=== PATIENT | female | born 1955 | race Caucasian/White ===

== ENCOUNTER 2018-09-16 07:29 | Emergency (ER) | payer BC ==
--- OUTSIDE RECORDS SUMMARY | 2018-09-16 07:31 | XMS REPORT | Clinical Summary ---
:1955 Author Organization [facility] Address [address] [place] [address] Care Team Providers Name Role Phone Alpesh Das MD Primary Care Provider Allergies Active Allergy Reactions Severity Noted Date Comments Codeine Other (See Comments) 06/26/2018 Nausea Medications Medication Sig Dispensed Refills Start Date End Date Status levocetirizine (XYZAL) 5 Take 5 mg by 0 Active MG tablet mouth every evening. metoprolol tartrate Take 25 mg by 0 Active (LOPRESSOR) 25 mg tablet mouth daily. ubidecarenone (COENZYME Take by mouth. 0 Active Q10) 60 mg capsule calcium Take 1 tablet by 0 Active carbonate/vitamin D3 mouth daily. (CALCIUM 500 + D ORAL) Active Problems Problem Noted Date Cardiac risk counseling 06/27/2018 Essential hypertension 06/26/2018 Encounters Date Type Specialty Care Team Description 07/25/2018 Telephone Cardiology Corbin Mcconnell MA Results (ct calcium score) 07/13/2018 Hospital Encounter Procedural Danny Diamond Essential hypertension; Cardiology MD Jaycee Cardiac risk counseling 06/26/2018 Office Visit Cardiology Danny Diamond Essential hypertension ( Primary Dx); MD Jaycee Cardiac risk counseling 06/26/2018 Orders Only Cardiology Danny Diamond MD after 09/15/2017 Family History Medical History Relation Name Comments CABG/Stent Father CABG/Stent Maternal Grandfather CABG/Stent Maternal Grandmother Relation Name Status Comments Father Maternal Grandfather Maternal Grandmother Social History Tobacco Use Types Packs/Day Years Used Date Never Smoker Smokeless Tobacco: Never Used Alcohol Use Drinks/Week oz/Week Comments No Alcohol Habits Answer Date Recorded How often do you have a drink containing alcohol? Never 06/26/2018 How many drinks containing alcohol do you have on a typical Not asked day when you are drinking? How often do you have six or more drinks on one occasion? Not asked Sex Assigned at Date Recorded Not on file Job Start Date Occupation Industry Not on file Not on file Not on file Travel History Travel Start Travel End No recent travel history available. Last Filed Vital Signs Vital Sign Reading Time Taken Blood Pressure 144/78 06/26/2018 3:03 PM [employer]IAL PROJECT [employer]GER Pulse 68 06/26/2018 3:03 PM [employer]IAL PRO[employer]GER Temperature 37 C (98.6 F) 06/26/2018 3:03 PM [employer]IAL PROJECT MANAGER Respiratory Rate 18 06/26/2018 3:03 PM [employer]IAL PROJECT MANAGER Oxygen Saturation 96% 06/26/2018 3:03 PM [employer]IAL PROJECT MANAGER Inhaled Oxygen Concentration - - Weight 93 kg (205 lb) 06/26/2018 3:03 PM [employer]IAL PROJECT MANAGER Height 160 cm (5' 3") 06/26/2018 3:03 PM [employer]IAL PROJECT MANAGER Body Mass Index 36.31 06/26/2018 3:03 PM REMEDIAL PROJECT MANAGER Plan of Treatment Health Maintenance Due Date Last Done Comments CERVICAL CANCER SCREENING 1976 BREAST CANCER SCREENING 2005 COLON CANCER SCREENING 2005 SHINGLES VACCINES (#1) 2005 INFLUENZA VACCINE 02/08/2018 Procedures Procedure Name Priority Date/Time Associated Diagnosis Comments CT CARDIAC CALCIUM Routine 07/13/2018 11:16 AM Essential Results for this SCORE [employer]IAL PROJECT MANAGER hypertension procedure are in Cardiac risk the results counseling section. ECG 12-LEAD Routine 06/26/2018 3:15 PM Essential Results for this [employer]IAL PROJECT MANAGER hypertension procedure are in Cardiac risk the results counseling section. OBTAIN MEDICAL Routine 06/26/2018 RECORDS after 09/15/[address] cardiac calcium score (07/13/2018 11:16 AM REMEDIAL PROJECT MANAGER) Narrative Performed At [facility] Nuclear Cardiology and Cardiac CT [address] [place] [address] CT Calcium Scoring Report Pat.Name:CRISTIANE TYLER Pat.ID:[id number] St.Date: 07/13/2018Refer.MD:DANNY DIAMOND MD Exam Time: 10:54:00 AM Study Type:CT Calcium Scoring Height:63inWeight: 198lb BSA: 1.93 m2 DOBAge:[age]Y Sex: FEMALEHR: 67 bpm Nuclear Tech:RT Huma(R)(CT) Pat. Stat.:Outpatient CPT - 4: [employer] Event ID: [id number] Order ID:[id number] Procedures:CT Flash mode Race:C SUMMARY: Technique: Sequential 3mm CT cuts were obtained through the chest using the Siemens Somatom Force CT scanner with ECG gating.Interactive image viewing and volumetric display and analysis were also performed.The CAC score was quantified using the Agatston scoring method. Non-contrast cardiac CT results are as follows: The total Coronary Artery Calcium Score (CACS) is 0 (ZERO). The non-contrast CT shows a normal cardiac size, no pericardial abnormalities, a normal aortic root of 3.2cm, a normal ascending thoracic aorta of 3.4cm and anormal descending thoracic aorta of 2.7cm.The left main and right coronary arteries appear to originate normally from the left and right sinus of Valsalva.The right coronary artery is dominant. Non-Cardiac Findings: None. Conclusion: Normal non-contrast cardiac CT. The coronary artery calcium score indicates no significant coronary atherosclerosis and a <0.3% risk per year of a major cardiac event.A CACS of zero is observed in 57% of women at age 63years. Recommendations: (1) Continue primary preventative strategies. Signed 07/14/2018 03:36 PM Svetlana Tavera MD Procedure Note Interface, Radiology Results In - 07/14/2018 3:36 PM [facility] Nuclear Cardiology and Cardiac CT [address] [place] [address] CT Calcium Scoring Report Pat.Name: CRISTIANE TYLER Pat.ID: [id number] St.Date: 07/13/2018 Refer.MD: DANNY DIAMOND MD Exam Time: 10:54:00 AM Study Type:CT Calcium Scoring Height: 63in Weight: 198lb BSA: 1.93 m2 Age: 12 1955,63Y Sex: FEMALE HR: 67 bpm Nuclear Tech:RT Huma(R)(CT) Pat. Stat.:Outpatient CPT - 4: [employer] Event ID:[id number] Order ID: [id number] Procedures:CT Flash mode Race: C SUMMARY: Technique: Sequential 3mm CT cuts were obtained through the chest using the Siemens Somatom Force CT scanner with ECG gating. Interactive image viewing and volumetric display and analysis were also performed. The CAC score was quantified using the Agatston scoring method. Non-contrast cardiac CT results are as follows: The total Coronary Artery Calcium Score (CACS) is 0 (ZERO). The non-contrast CT shows a normal cardiac size, no pericardial abnormalities, a normal aortic root of 3.2cm, a normal ascending thoracic aorta of 3.4cm and a normal descending thoracic aorta of 2.7cm. The left main and right coronary arteries appear to originate normally from the left and right sinus of Valsalva. The right coronary artery is dominant. Non-Cardiac Findings: None. Conclusion: Normal non-contrast cardiac CT. The coronary artery calcium score indicates no significant coronary atherosclerosis and a <0.3% risk per year of a major cardiac event. A CACS of zero is observed in 57% of women at age 63years. Recommendations: (1) Continue primary preventative strategies. Signed 07/14/2018 03:36 PM Svetlana Tavera MD Performing Organization Address [facility] Phone Number [facility] [address] [place] [address] ECG 12 lead (06/26/2018 3:15 PM REMEDIAL PROJECT MANAGER) Ventricular rate 63 [facility] Atrial rate 63 [facility] AL interval 186 [facility] QRSD interval 80 [facility] QT interval 398 [facility] QTC interval 407 [facility] P axis 1 58 [facility] QRS axis 1 56 [facility] T wave axis 70 [facility] EKG impression Normal sinus rhythm-Normal ECG-No previous [facility] ECGs available- Narrative Performed At Performing Organization Address [facility]/Zipcode Phone Number [facility] [address] [place] [address] Obtain medical records (06/26/2018) Narrative Performed At after 09/15/2017 Advance Directives Patient has advance care planning documents on file. For more information, please contact:Darron Chowdary[address] [place] [address]
[2018-09-16] MEDS ORDERED: NA CHLORIDE 0.9% 1,000 ML ONE ×2 (07:55→08:53)
[2018-09-16] MEDS ORDERED: ONDANSETRON 4 MG/2 ML VIAL ONE (07:55)
[2018-09-16 08:05] LABS: Absolute Monocytes 0.9 K/uL (0.1-1.3); Absolute Neutrophil 4.2 K/uL (1.8-8.0); Basophils % 0.5 % (0-1.3); Eosinophils % 0.8 % (0-4.4); Hematocrit 49.4 % (36.0-45.0); Lymphocytes % 27.7 % (15.3-44.8); MPV 8.7 fL (7.6-11.3); Monocytes % 12.2 % (3.3-12.3); RBC Red Blood Cell Count 5.66 M/uL (3.86-4.86)
[2018-09-16 08:27] LABS: Albumin 4.4 g/dL (3.4-5.0); Bilirubin Direct 0.2 mg/dL (0-0.2); Bilirubin Total 0.5 mg/dL (0.2-1.0); Potassium 3.7 mmol/L (3.5-5.1); Protein, Total 9.2 g/dL (6.4-8.2)
--- NOTE | 2018-09-16 09:26 | ER ---
Nurse's Notes [facility] Name: Vandana Tyler Age: 63 yrs Sex: Female : 1955 Arrival Date: 09/16/2018 Time: 07:31 Bed 5 Private MD: Diagnosis: Volume depletion, unspecified;Diarrhea, unspecified;Vomiting, unspecified Presentation: 09/16 07:40 Presenting complaint: Patient states: Diarrhea x 3 days, N/V and R flank pain that ss began 2 days ago. Denies fever. Transition of care: patient was not received from another setting of care. Onset of symptoms was August 16, 2018. Risk Assessment: Do you want to hurt yourself or someone else? Patient reports no desire to harm self or others. Initial Sepsis Screen: Does the patient meet any 2 criteria? HR > 90 bpm. No. Patient's initial sepsis screen is negative. Does the patient have a suspected source of infection? No. Patient's initial sepsis screen is negative. Care prior to arrival: None. 07:40 Method Of Arrival: Ambulatory ss 07:40 Acuity: DENISSE 3 ss Historical: - Allergies: 07:48 Levaquin; ss - Home Meds: 07:48 metoprolol tartrate 25 mg Oral tab 1 tab once daily [Active]; Xyzal 5 mg oral tab 1 tab ss as needed [Active]; - PMHx: 07:48 prediabetic; Hypertension; ss - PSHx: 07:48 Cholecystectomy; Knee surgery; Foot; kidney stone removed; ss - Immunization history:: Adult Immunizations up to date. - Social history:: Smoking status: Patient/guardian denies using tobacco. - Ebola Screening: : Patient denies exposure to infectious person Patient denies travel to an Ebola-affected area in the 21 days before illness onset. Screenin:48 Abuse screen: Denies threats or abuse. Denies injuries from another. Tuberculosis ss screening: Never had TB. Fall Risk None identified. 07:58 Nutritional screening: No deficits noted. ch Assessment: 07:58 General: Appears in no apparent distress. comfortable, Behavior is calm, cooperative, ch appropriate for age. Pain: Complains of pain in posterior aspect of right lateral abdomen, anterior aspect of right lateral abdomen and right upper quadrant Pain currently is 6 out of 10 on a pain scale. Pain began suddenly. Neuro: No deficits noted. Cardiovascular: Denies chest pain. Respiratory: Airway is patent Respiratory effort is even, unlabored. GI: Abdomen is round non-distended, Bowel sounds present X 4 quads. Abd is soft and non tender X 4 quads. Reports cramping, diarrhea, nausea, vomiting. : No signs and/or symptoms were reported regarding the genitourinary system. EENT: No signs and/or symptoms were reported regarding the EENT system. Derm: Skin is pink, warm \T\ dry. Musculoskeletal: No signs and/or symptoms reported regarding the musculoskeletal system. 08:49 Reassessment: Patient appears in no apparent distress at this time. Patient and/or ch family updated on plan of care and expected duration. Pain level reassessed. Patient is alert, oriented x 3, equal unlabored respirations, skin warm/dry/pink. Patient states feeling better. 09:25 Reassessment: Patient appears in no apparent distress at this time. Patient and/or ch family updated on plan of care and expected duration. Pain level reassessed. Patient is alert, oriented x 3, equal unlabored respirations, skin warm/dry/pink. pt oob and urinated, c/o abdominal cramping. pt medicated per orders, verb understanding of plan to discharge. Patient states feeling better. Patient states symptoms have improved. Vital Signs: 07:48 BP 148 / 89; Pulse 115; Resp 19; Temp 97.6(O); Pulse Ox 98% on R/A; Weight 86.18 kg; ss Height 5 ft. 3 in. (160.02 cm); Pain 5/10; 08:49 BP 124 / 74; Pulse 85; Pulse Ox 98% on R/A; ch 09:25 BP 121 / 68; Pulse 87; Resp 16; Temp 97.9; Pulse Ox 99% on R/A; Pain 4/10; ch 07:48 Body Mass Index 33.66 (86.18 kg, 160.02 cm) ED Course: 07:31 Patient arrived in ED. tw3 07:34 Gardenia Brush FNP-C is PHCP. kb 07:34 Rehan Licona MD is Attending Physician. kb 07:46 Triage completed. ss 07:48 Arm band placed on right wrist. ss 07:48 Patient has correct armband on for positive identification. Placed in gown. Bed in low ss position. Call light in reach. Side rails up X 1. Pulse ox on. NIBP on. 07:48 Patient maintains SpO2 saturation greater than 95% on room air. 07:58 Della Garces, RN is Primary Nurse. 07:58 No apparent distress. ch 07:58 Warm blanket given. ch 07:58 No provider procedures requiring assistance completed. Initial lab(s) drawn, by al, ch sent to lab. Inserted saline lock: 18 gauge in right forearm, using aseptic technique. 09:25 IV discontinued, intact, bleeding controlled, No redness/swelling at site. Pressure ch dressing applied. Administered Medications: 08:03 Drug: Zofran 4 mg Route: IVP; Site: right forearm; ch 08:45 Follow up: Response: No adverse reaction; Marked relief of symptoms ch 08:03 Drug: NS 0.9% 1000 ml Route: IV; Rate: 1000 ml; Site: right forearm; ch 08:45 Follow up: IV Status: Completed infusion; IV Intake: 1000ml ch 08:44 Drug: NS 0.9% 1000 ml Route: IV; Rate: 1000 ml; Site: right forearm; ch 09:32 Follow up: IV Status: Completed infusion; IV Intake: 1000ml ch 09:32 Drug: Bentyl 20 mg Route: PO; ch 09:33 Follow up: Response: No adverse reaction ch Intake: 08:45 IV: 1000ml; Total: 1000ml. ch 09:32 IV: 1000ml; Total: 2000ml. Outcome: 09:25 Discharge ordered by . kiah 09:25 Discharged to home ambulatory, with family. 09:25 Condition: improved 09:25 Discharge instructions given to patient, family, Instructed on discharge instructions, follow up and referral plans. medication usage, Demonstrated understanding of instructions, follow-up care, medications, Prescriptions given X 2. 09:39 Patient left the ED. Signatures: Gardenia Brush, MARY SANDOVAL-Della Chappell, RN RN Eliz Nowak RN RN Luz Elena Bhagat tw3 Corrections: (The following items were deleted from the chart) 07:49 07:40 Initial Sepsis Screen: Does the patient meet any 2 criteria? No. Patient's ss initial sepsis screen is negative. Does the patient have a suspected source of infection? No. Patient's initial sepsis screen is negative. ss
--- NOTE | 2018-09-16 09:26 | EDPHYS ---
Physician Documentation [facility] Name: Vandana Tyler Age: 63 yrs Sex: Female : 1955 Arrival Date: 09/16/2018 Time: 07:31 Bed 5 Private MD: ED Physician Rehan Licona HPI: 09/16 07:45 This 63 yrs old Female presents to ER via Unassigned with complaints of kb Diarrhea. 07:45 The patient presents to the emergency department with nausea, vomiting, diarrhea, kb abdominal pain. Onset: The symptoms/episode began/occurred 5 day(s) ago. Possible causes: unknown. The symptoms are aggravated by nothing. The symptoms are alleviated by nothing. Associated signs and symptoms: Pertinent positives: abdominal pain, diarrhea, nausea, vomiting, Pertinent negatives: fever. Severity of symptoms: At their worst the symptoms were moderate in the emergency department the symptoms are unchanged. The patient has not experienced similar symptoms in the past. The patient has not recently seen a physician. Pt reports she started having diarrhea on Tuesday night, then vomited the past two days (once a day). c/o RUQ pain as well. Denies fever or sick contacts. Historical: - Allergies: 07:48 Levaquin; ss - Home Meds: 07:48 metoprolol tartrate 25 mg Oral tab 1 tab once daily [Active]; Xyzal 5 mg oral tab 1 tab ss as needed [Active]; - PMHx: 07:48 prediabetic; Hypertension; ss - PSHx: 07:48 Cholecystectomy; Knee surgery; Foot; kidney stone removed; ss - Immunization history:: Adult Immunizations up to date. - Social history:: Smoking status: Patient/guardian denies using tobacco. - Ebola Screening: : Patient denies exposure to infectious person Patient denies travel to an Ebola-affected area in the 21 days before illness onset. ROS: 07:46 Constitutional: Negative for fever, chills, and weight loss, ENT: Negative for injury, kb pain, and discharge, Neck: Negative for injury, pain, and swelling, Cardiovascular: Negative for chest pain, palpitations, and edema, Respiratory: Negative for shortness of breath, cough, wheezing, and pleuritic chest pain, Back: Negative for injury and pain, : Negative for injury, bleeding, discharge, and swelling, MS/Extremity: Negative for injury and deformity, Skin: Negative for injury, rash, and discoloration, Neuro: Negative for headache, weakness, numbness, tingling, and seizure. 07:46 Abdomen/GI: Positive for abdominal pain, nausea, vomiting, and diarrhea, Negative for constipation, abdominal cramps, abdominal distension, anorexia. Exam: 07:44 Constitutional: This is a well developed, well nourished patient who is awake, alert, kb and in no acute distress. Head/Face: Normocephalic, atraumatic. ENT: Nares patent. No nasal discharge, no septal abnormalities noted. Tympanic membranes are normal and external auditory canals are clear. Oropharynx with no redness, swelling, or masses, exudates, or evidence of obstruction, uvula midline. Mucous membranes moist. Neck: Trachea midline, no thyromegaly or masses palpated, and no cervical lymphadenopathy. Supple, full range of motion without nuchal rigidity, or vertebral point tenderness. No Meningismus. Chest/axilla: Normal chest wall appearance and motion. Nontender with no deformity. No lesions are appreciated. Cardiovascular: Regular rate and rhythm with a normal S1 and S2. No gallops, murmurs, or rubs. Normal PMI, no JVD. No pulse deficits. Respiratory: Lungs have equal breath sounds bilaterally, clear to auscultation and percussion. No rales, rhonchi or wheezes noted. No increased work of breathing, no retractions or nasal flaring. Back: No spinal tenderness. No costovertebral tenderness. Full range of motion. Skin: Warm, dry with normal turgor. Normal color with no rashes, no lesions, and no evidence of cellulitis. MS/ Extremity: Pulses equal, no cyanosis. Neurovascular intact. Full, normal range of motion. Neuro: Awake and alert, GCS 15, oriented to person, place, time, and situation. Cranial nerves II-XII grossly intact. Motor strength 5/5 in all extremities. Sensory grossly intact. Cerebellar exam normal. Normal gait. 07:44 Abdomen/GI: Inspection: abdomen appears normal, Bowel sounds: normal, in all quadrants, Palpation: soft, in all quadrants, mild abdominal tenderness, in the right upper quadrant. Vital Signs: 07:48 BP 148 / 89; Pulse 115; Resp 19; Temp 97.6(O); Pulse Ox 98% on R/A; Weight 86.18 kg; ss Height 5 ft. 3 in. (160.02 cm); Pain 5/10; 08:49 BP 124 / 74; Pulse 85; Pulse Ox 98% on R/A; ch 09:25 BP 121 / 68; Pulse 87; Resp 16; Temp 97.9; Pulse Ox 99% on R/A; Pain 4/10; ch 07:48 Body Mass Index 33.66 (86.18 kg, 160.02 cm) ss MDM: 07:34 Patient medically screened. kb 07:44 Data reviewed: vital signs, nurses notes. Data interpreted: Pulse oximetry: on room air kb is 100 %. Interpretation: normal. 09:25 Counseling: I had a detailed discussion with the patient and/or guardian regarding: the kb historical points, exam findings, and any diagnostic results supporting the discharge/admit diagnosis, lab results, the need for outpatient follow up, a family practitioner, to return to the emergency department if symptoms worsen or persist or if there are any questions or concerns that arise at home. 09/16 07:44 Order name: Basic Metabolic Panel; Complete Time: 08:34 kb 09/16 07:44 Order name: CBC with Diff; Complete Time: 08:34 kb 09/16 07:44 Order name: Hepatic Function; Complete Time: 08:34 kb 09/16 07:44 Order name: Lipase; Complete Time: 08:34 kb 09/16 07:44 Order name: IV Saline Lock; Complete Time: 07:47 kb 09/16 07:44 Order name: Labs collected and sent; Complete Time: 07:47 kb 09/16 07:44 Order name: Urine Dipstick-Ancillary (obtain specimen); Complete Time: 09:33 kb Administered Medications: 08:03 Drug: Zofran 4 mg Route: IVP; Site: right forearm; ch 08:45 Follow up: Response: No adverse reaction; Marked relief of symptoms ch 08:03 Drug: NS 0.9% 1000 ml Route: IV; Rate: 1000 ml; Site: right forearm; ch 08:45 Follow up: IV Status: Completed infusion; IV Intake: 1000ml ch 08:44 Drug: NS 0.9% 1000 ml Route: IV; Rate: 1000 ml; Site: right forearm; ch 09:32 Follow up: IV Status: Completed infusion; IV Intake: 1000ml 09:32 Drug: Bentyl 20 mg Route: PO; 09:33 Follow up: Response: No adverse reaction Disposition: 09/16/18 09:25 Discharged to Home. Impression: Volume depletion, unspecified, Diarrhea, unspecified, Vomiting, unspecified. - Condition is Stable. - Discharge Instructions: Food Choices to Help Relieve Diarrhea, Adult, Viral Gastroenteritis, Adult, [id number], Nausea and Vomiting, Adult, [id number]-bu-[id number], Diarrhea, Adult, [id number]. - Prescriptions for Bentyl 20 mg Oral Tablet - take 1 tablet by ORAL route every 6 hours As needed; 20 tablet. Zofran 4 mg Oral Tablet - take 1 tablet by ORAL route every 6 hours As needed; 20 tablet. - Medication Reconciliation Form, Thank You Letter, Antibiotic Education, Prescription Opioid Use, Work release form, Family Work Release form. - Follow up: Emergency Department; When: As needed; Reason: Worsening of condition. Follow up: Private Physician; When: 2 - 3 days; Reason: Recheck today's complaints, Continuance of care, Re-evaluation by your physician. Addendum: 09/18/2018 09:06 Co-signature as Attending Physician, Rehan Licona MD I agree with the assessment and c lee plan of care. Signatures: Dispatcher [employer] Gardenia Saenz, MARY SANDOVAL-Della Chappell, RN RN Rehan Juárez MD MD cha Smirch, Shelby, RN RN ss Corrections: (The following items were deleted from the chart) 09/16 09:39 09:26 09/16/2018 09:25 Discharged to Home. Impression: Volume depletion, unspecified; Diarrhea, unspecified; Vomiting, unspecified. Condition is Stable. Forms are Medication Reconciliation Form, Thank You Letter, Antibiotic Education, Prescription Opioid Use. Follow up: Emergency Department; When: As needed; Reason: Worsening of condition. Follow up: Private Physician; When: 2 - 3 days; Reason: Recheck today's complaints, Continuance of care, Re-evaluation by your physician. kb
[2018-09-16] MEDS ORDERED: DICYCLOMINE HCL 10 MG CAP ONE (09:40)
[2018-09-16 11:33] LABS: Urine Blood TRACE (NEG); Urine Glucose NEGATIVE (NEG); Urine Protein 2+ (NEG)
== END 2018-09-16 09:39 | disposition home or self-care (01) ==
LOC: ER 07:29
DX: E86.9 Volume depletion, unspecified (principal); R11.10 Vomiting, unspecified; I10 Essential (primary) hypertension; R73.03 Prediabetes; Z88.1 Allergy status to other antibiotic agents
CPT/HCPCS: 36415; 80048; 80076; 81003; 83690; 85025; 96361; 96374; 99284; J2405; J7030